=== PATIENT | female | born 1960 | race Caucasian/White ===

== ENCOUNTER → 2017-03-25 | Outpatient (CLI) | payer OTHER ==
[~2017-03-25] MED LIST: ADV250/50 INH; CYAN50TA3 PO; ERG400 PO; FEXO180T74 PO; FLUT1DIS27 IH; LOR5/325 PO; MIN100 PO; MON10 PO; OMEP-153 PO; ORACEA PO; SPIR100T31 PO
--- NOTE | 2017-03-26 12:24 | RADIOLOGY IMAGING REPORT ---
FACILITY: [facility] PATIENT NAME: COURTNEY GARRETT : [id number] MR: [id number] V: [id number] EXAM DATE: [id number] ORDERING PHYSICIAN: INDIGO MOORE TECHNOLOGIST: Quyen Beltran PROCEDURE:BILATERAL DIGITAL SCREENING MAMMOGRAM WITH CAD ASSISTED INTERPRETATION AND 3D BREAST TOMOSYNTHESIS. COMPARISON:Prior mammograms dated 09/08/15, 04/15/14, 04/12/13, 02/19/12 and 11/21/10. INDICATIONS:SCREENING FINDINGS: Moderately dense fibroglandular tissue is seen throughout the breasts. The parenchymal pattern has remained stable when allowing for difference in mammographic technique and patient positioning. There is no evidence of malignant appearing mass, malignant appearing calcification or secondary sign of malignancy in either breast. DIAGNOSTIC CATEGORY 1--NEGATIVE. RECOMMENDATIONS: ROUTINE MAMMOGRAM AND CLINICAL EVALUATION. IMPRESSION: Bi-RADS 1: No significant abnormality is seen. Images were reviewed with R2CAD and 3D breast tomosynthesis. Dictated by: Gracie Foote M.D. on 03/25/2017 at 16:15 Transcribed by: MARIA ESTHER on 03/25/2017 at 20:47 Approved by: Gracie Foote M.D. on 03/26/2017 at 12:23 [facility]
== END ==
LOC: MAMO 01:36
PROVIDERS: ATTEND Family Medicine
DX: Z12.31 Encounter for screening mammogram for malignant neoplasm of breast (principal)
CPT/HCPCS: 77063; 77067

== ENCOUNTER → 2017-07-17 | Outpatient (REF) ==
[2017-07-17 07:10] LABS: LDL CHOLESTEROL 153 mg/dl
== END ==
DX: Z02.9 Encounter for administrative examinations, unspecified (principal)

== ENCOUNTER → 2018-08-05 | Outpatient (CLI) | payer OTHER ==
[~2018-08-05] MED LIST changes: +BUDE10.25 IH; +ESTR1TAB17 PO; +LEVO75TA73 PO; +LORA10CA3 PO; +MULT-1160 PO
--- NOTE | 2018-08-12 14:11 | RADIOLOGY IMAGING REPORT ---
FACILITY: [facility] PATIENT NAME: COURTNEY GARRETT : [id number] MR: [id number] V: [id number] EXAM DATE: [id number] ORDERING PHYSICIAN: NORY CHINO TECHNOLOGIST: Quyen Beltran PROCEDURE: BILATERAL DIGITAL SCREENING MAMMOGRAM WITH CAD ASSISTED INTERPRETATION & 3D TOMOSYNTHESIS REASON FOR STUDY: Screening. BREAST PROCEDURES/TREATMENTS: Prior benign Left stereotactic biopsy. COMPARISON: 03/25/2017, 09/08/2015, 04/15/2014. VIEWS OBTAINED: 2D & 3D full field CC & MLO. BREAST DENSITY: Scattered fibroglandular densities. MAMMOGRAM FINDINGS: Redefined are benign loosely grouped microcalcifications in both breasts. There are no concerning microcalcifications, persistent architectural distortion of dominant mass. IMPRESSION: BIRADS 1: Negative. DIAGNOSTIC CATEGORY 1--NEGATIVE. RECOMMENDATIONS: ROUTINE MAMMOGRAM AND CLINICAL EVALUATION. Dictated by: Parth Raymundo M.D. on 08/05/2018 at 12:50 Transcribed by: FRANSISCO on 08/12/2018 at 10:47 Approved by: Gracie Foote M.D. on 08/12/2018 at 14:08 [facility]
== END ==
LOC: MAMO 00:33
PROVIDERS: ATTEND Obstetrics & Gynecology
DX: Z12.31 Encounter for screening mammogram for malignant neoplasm of breast (principal)
CPT/HCPCS: 77063; 77067